=== PATIENT | male | born 2000 | race Hispanic/Latino ===

== ENCOUNTER 2018-10-17 13:56 | Emergency (ER) | payer OTHER ==
[~2018-10-17] VITALS: Ht 188 cm; Wt 90.7 kg
--- OUTSIDE RECORDS SUMMARY | 2018-10-17 14:00 | XMS REPORT ---
Author Author Admin, [place] Organization Formerly [facility], [facility] Address [address] [place] [address] Phone Allergies, Adverse Reactions, Alerts Allergy Name Reaction Description Start Date Severity Status Provider No Known Allergies Mey Raghavendra DO Conditions or Problems Problem Name Problem Code Onset Date Status Entry Date Provider Comment Standard Description Annotate INTELLECTUAL DISABILITY, MILD Active Mey Raghavendra DO Mild intellectual disabilities ANXIETY DISORDER, OTHER SPECIFIED Active Binduzehra Gordon PsyD Other anxiety states OPPOSITIONAL DEFIANT DISORDER, MILD Active Bindu Evan PsyD Oppositional defiant disorder of childhood or adolescence Attention-deficit hyperactivity disorder, combined type Active Mey Raghavendra DO SPORTS PHYSICAL V70.3 Active Yash Mack MD Other general medical examination for administrative purposes MENTAL RETARDATION, MILD 317 03/24/11 Active Angela Lagos 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 Bindu Gordon PsyD ADHD ICD-314.01 Inactive Mey Raghavendra DO ADHD ICD-314.01 Inactive Mey Raghavendra DO ATTENTION DEFICIT HYPERACTIVITY DISORDER,COMBINED TYPE ICD-314.01 Inactive Mey Raghavendra DO BIPOLAR AFFECTIVE DISORDER ICD-296.80 Inactive Mey Raghavendra DO BIPOLAR AFFECTIVE DISORDER ICD-296.80 Inactive Mey Raghavendra DO BIPOLAR DISORDER NOS ICD-296.80 Inactive Mey Raghavendra DO DEPRESSION ICD-311 Inactive Mey Raghavendra DO MILD MENTAL RETARDATION ICD-317 Inactive Mey Raghavendra DO MILD MENTAL RETARDATION ICD-317 Inactive Mey Raghavendra DO MOOD DISORDER NOS ICD-296.90 Inactive Mey Raghavendra DO WELL CHILD EXAMINATION ICD-V20.2 Inactive Mey Raghavendra DO WELL CHILD EXAMINATION ICD-V20.2 Inactive Mey Raghavendra DO WELL CHILD EXAMINATION ICD-V20.2 Inactive Mey Raghavendra DO WELL CHILD EXAMINATION ICD-V20.2 Inactive Mey Raghavendra DO WELL CHILD EXAMINATION ICD-V20.2 Inactive Mey Raghavendra DO AUTISM SPECTRUM DISORDER Resolved Bindu Gordon PsyD ADHD 314.01 03/24/11 Resolved Mey Raghavendra DO Attention deficit disorder of childhood with hyperactivity BIPOLAR DISORDER NOS 296.80 03/24/11 Resolved Mey Raghavendra DO Bipolar disorder, unspecified MILD MENTAL RETARDATION 317 03/24/11 Resolved Mey Raghavendra DO Mild intellectual disabilities WELL CHILD EXAMINATION V20.2 03/24/11 Resolved Mey Raghavendra DO Routine infant or child health check ATTENTION DEFICIT HYPERACTIVITY DISORDER,COMBINED TYPE 314.01 01/01/2011 Resolved Mey Raghavendra DO Attention deficit disorder of childhood with hyperactivity MILD MENTAL RETARDATION 317 01/01/2011 Resolved Mey Raghavendra DO Mild intellectual disabilities MOOD DISORDER NOS 296.90 01/01/2011 Resolved Mey Morganso DO Unspecified episodic mood disorder WELL CHILD EXAMINATION V20.2 07/16/10 Resolved Mey Morganso DO Routine or child health check ADHD 314.01 09/22/09 Resolved Mey Mabry DO Attention deficit disorder of childhood with hyperactivity BIPOLAR AFFECTIVE DISORDER 296.80 09/22/09 Resolved Mey Morganso DO Bipolar disorder, unspecified WELL CHILD EXAMINATION V20.2 09/22/09 Resolved Mey Morganso DO Routine or child health check WELL CHILD EXAMINATION V20.2 11/07/08 Resolved Mey Morganso DO Routine infant or child health check BIPOLAR AFFECTIVE DISORDER 296.80 05/05/07 Resolved Mey Morganso DO Bipolar disorder, unspecified DEPRESSION 311 05/05/07 Resolved Mey Mabry DO Depressive disorder, not elsewhere classified WELL CHILD EXAMINATION V20.2 05/05/07 Resolved Mey Morganso DO Routine or child health check Medication List Medication Instructions Start Date Stop Date Generic Name NDC Status Provider Patient Instruction VYVANSE 50 MG ORAL CAPSULE 1 By Mouth qam LISDEXAMFETAMINE DIMESYLATE 91937188501 Active Mey Morganso DO Active PROZAC 10 MG ORAL CAPSULE 1 By Mouth qam PROZAC 10 MG ORAL CAPSULE 971520 FLUOXETINE HCL Inactive INTUNIV 4 MG ORAL TABLET EXTENDED RELEASE 24 HOUR 1 By Mouth qam INTUNIV 4 MG ORAL TABLET EXTENDED RELEASE 24 HOUR GUANFACINE HCL Inactive DAYTRANA 30 MG/9HR TRANSDERMAL PATCH 1 to skin qam DAYTRANA 30 MG/9HR TRANSDERMAL PATCH METHYLPHENIDATE Inactive CONCERTA 36 MG ORAL TABLET EXTENDED RELEASE two By Mouth Every Morning CONCERTA 36 MG ORAL TABLET EXTENDED RELEASE METHYLPHENIDATE HCL Inactive FOCALIN 10 MG ORAL TABLET by mouth every 3PM FOCALIN 10 MG ORAL TABLET 009567 DEXMETHYLPHENIDATE HCL Inactive SEROQUEL 100 MG ORAL TABLET by mouth every PM SEROQUEL 100 MG ORAL TABLET 792809 QUETIAPINE FUMARATE Inactive PROZAC 10 MG ORAL CAPSULE 1 By Mouth qam FLUOXETINE HCL 51941335705 No Longer Active Mey Raghavendra DO Active INTUNIV 4 MG ORAL TABLET EXTENDED RELEASE 24 HOUR 1 By Mouth qam GUANFACINE HCL 28963057621 No Longer Active Mey Raghavendra DO Active DAYTRANA 30 MG/9HR TRANSDERMAL PATCH 1 to skin qam METHYLPHENIDATE 63922040241 No Longer Active Mey Raghavendra DO Active CONCERTA 36 MG ORAL TABLET EXTENDED RELEASE two By Mouth Every Morning METHYLPHENIDATE HCL 71300693262 No Longer Active Mey Raghavendra DO Active FOCALIN 10 MG ORAL TABLET by mouth every 3PM DEXMETHYLPHENIDATE HCL 58598714200 No Longer Active Mey Raghavendra DO Active SEROQUEL 100 MG ORAL TABLET by mouth every PM QUETIAPINE FUMARATE 89131353722 No Longer Active Mey Raghavendra DO Active Immunizations Vaccine Administration Date Value Standard Description Human Papillomavirus vaccine (Gardasil) #2, (HPV #2) transcribed from official record human papilloma virus vaccine, quadrivalent Human Papillomavirus vaccine (Gardasil) #2, (HPV #2) Drug Name Unknown human papilloma virus vaccine, quadrivalent Human Papilloma Virus Vaccine (Gardasil) (HPV 1) Administration Date transcribed from official record human papilloma virus vaccine, quadrivalent chicken pox immunization #1 transcribed from official record varicella virus vaccine meningococcal polysaccharide conjugate vaccine (MCV4) #2 transcribed from official record meningococcal vaccine, unspecified formulation Tetanus toxoid, reduced diphtheria toxoid and acellular Pertussis vaccine, absorbed (TdaP) given transcribed from official record tetanus toxoid, reduced diphtheria toxoid, and acellular pertussis vaccine, adsorbed H1N1 Swine flu vaccine #1 transcribed from official record Novel [id number], all formulations influenza immunization #2 transcribed from official record influenza virus vaccine, unspecified formulation meningococcal polysaccharide conjugate vaccine (MCV4) transcribed from official record meningococcal vaccine, unspecified formulation influenza immunization (Flu Vax) has been administered transcribed from official record influenza virus vaccine, unspecified formulation chicken pox immunization #2 transcribed from official record varicella virus vaccine diphtheria and tetanus immunization #1 given transcribed from official record diphtheria and tetanus toxoids, adsorbed for pediatric use DTaP (Diphtheria, Tetanus, and acellular Pertussis) immunization #4 transcribed from official record diphtheria, tetanus toxoids and acellular pertussis vaccine hepatitis A immunization #2 transcribed from official record hepatitis A vaccine, unspecified formulation Hemophilus influenza B immunization #2 transcribed from official record Haemophilus influenzae type b vaccine, conjugate unspecified formulation MMR (measles, mumps, rubella) virus immunization #2 transcribed from official record polio vaccine #4 transcribed from official record poliovirus vaccine, inactivated DTaP (Diphtheria, Tetanus, and acellular Pertussis) immunization #3 transcribed from official record diphtheria, tetanus toxoids and acellular pertussis vaccine hepatitis B vaccine #3 transcribed from official record hepatitis B vaccine, unspecified formulation polio vaccine #3 transcribed from official record poliovirus vaccine, inactivated DTaP (Diphtheria, Tetanus, and acellular Pertussis) immunization #2 transcribed from official record diphtheria, tetanus toxoids and acellular pertussis vaccine hepatitis B vaccine #2 given transcribed from official record hepatitis B vaccine, unspecified formulation polio vaccine #2 transcribed from official record poliovirus vaccine, inactivated chicken pox immunization #1 transcribed from official record varicella virus vaccine DTaP (Diphtheria, Tetanus, and acellular Pertussis) immunization #1 transcribed from official record diphtheria, tetanus toxoids and acellular pertussis vaccine Hemophilus influenza B immunization #1 transcribed from official record Haemophilus influenzae type b vaccine, conjugate unspecified formulation hepatitis A immunization #1 transcribed from official record hepatitis A vaccine, unspecified formulation hepatitis B vaccine #1 given transcribed from official record hepatitis B vaccine, unspecified formulation MMR (measles, mumps, rubella) virus immunization #1 transcribed from official record polio vaccine #1 transcribed from official record poliovirus vaccine, inactivated Vital Signs Date Name Value Unit Range Description blood pressure, diastolic 82 mm[Hg] BP reed blood pressure, systolic 114 mm[Hg] BP sys height E&M 71.25 [in_us] Bdy height pulse rate E&M 114 /min Heart rate weight E&M 203 [lb_av] Weight Measured Diagnostic Results Date Name Value Unit Range Description Preload: Historical - Toxicology lead, blood <2 ug/dL Preload: Historical - Hematology hemoglobin, blood 14.0 g/dL Encounters Date Encounter Provider Code Facility 20:42:22 CDT Est Patient Exp Problem - 11602 Mey Raghavendra DO CPT-22120 [facility] 12:50:11 CDT Est Patient Exp Problem - 99728 Mey Raghavendra DO CPT-78109 [facility] 17:16:30 CDT Est Patient Exp Problem - 57438 Mey Raghavendra DO CPT-35791 [facility] 23:04:52 [place] Est Patient Exp Problem - 20167 Mey Raghavendra DO CPT-62598 [facility] 19:11:36 [place] Est Patient Exp Problem - 38351 Mey Raghavendra DO CPT-92492 [facility] 09:28:48 CDT Est Patient Exp Problem - 05930 Mey Raghavendra DO CPT-62402 [facility] 12:49:12 CDT Est Patient Exp Problem - 80858 Mey Raghavendra DO CPT-08567 [facility] 16:02:43 [place] Est Patient Exp Problem - 00191 Mey Raghavendra DO CPT-15281 [facility] 10:03:19 CDT Est Patient Exp Problem - 24424 Mey Raghavendra DO CPT-12865 [facility] 10:59:09 CDT Est Patient Exp Problem - 86716 Mey Raghavendra DO CPT-90071 [facility] 10:32:23 [place] Est Patient Exp Problem - 69926 Mey Raghavendra DO CPT-13153 [facility] 21:27:05 CDT Est Patient Exp Problem - 07268 Mey Raghavendra DO CPT-62519 [facility] 21:37:59 CDT Est Patient Exp Problem - 87842 Mey Raghavendra DO CPT-56194 [facility] 07:47:21 CDT Est Patient Detailed - 80593 Mey Raghavendra DO CPT-07403 [facility] 07:58:07 [place] Est Patient Detailed - 09564 Mey Raghavendra DO CPT-69025 [facility] 10:16:00 CDT Est Patient Detailed - 03853 Mey Raghavendra DO CPT-72216 [facility] 07:42:28 CDT Est Patient Detailed - 09313 Mey Raghavendra DO CPT-72536 [facility] 11:28:29 CDT Est Patient Detailed - 48315 Mey Raghavendra DO CPT-28385 [facility] 07:39:58 CDT Est Patient Detailed - 95299 Mey Raghavendra DO CPT-13836 [facility] Procedures Code Procedure Name Date Entry Date Standard Description CPT-08824 Diagnostic evaluation (no medical) - 21927 11:00:24 CDT CPT-79289 Psychotherapy 60 (53+*) min - 86688 (with patient and/or family member) 10:20:09 CDT CPT-16339 Psychological Testing / hr - 02672 15:59:06 CDT CPT-10972 Psychological Testing / hr - 90668 09:51:50 CDT CPT-83084 Psychological Testing / hr - 01501 08:31:57 CDT CPT-71577 Sports /School Physicals (V70.3) 11:31:42 [place] CPT-50626 Pharmacological Management - 67161 13:37:54 [place] CPT-90274 Pharmacological Management - 84595 08:01:52 CDT CPT-21430 Pharmacological Management - 44268 21:43:19 [place] CPT-22024 Pharmacological Management - 91350 14:03:05 [place] CPT-48260 Pharmacological Management - 41245 14:44:58 CDT
== END 2018-10-17 14:53 | disposition home or self-care (01) ==
LOC: FSED 13:56
DX: J00 Acute nasopharyngitis [common cold] (principal); F90.9 Attention-deficit hyperactivity disorder, unspecified type
CPT/HCPCS: 99283